=== PATIENT | male | born 1995 | race Caucasian/White ===

== ENCOUNTER 2021-02-11 09:16 | Emergency (ER) | payer OTHER ==
[2021-02-11 09:24] VITALS: TEMP 98.6
[2021-02-11 09:27] LABS: Glucose,Whole Blood 105 mg/dL (75-99)
--- NOTE | 2021-02-11 09:32 | ED ---
General Adult HPI - General Chief complaint: Trauma Stated complaint: Fall Time Seen by Provider: 02/11/21 09:20 Source: patient, EMS, RN notes reviewed, old records reviewed Mode of arrival: EMS Limitations: no limitations - History of Present Illness Initial comments: This is a 25-year-old male who presents emergency Department after he had fallen off a roof 14 feet. Patient states he doesn't remember the event however people at the scene stated he did get up fairly quickly afterwards and was walking around but again patient doesn't remember the event. Patient denies headache patient denies neck pain patient denies numbness weakness. Patient complains of right wrist pain and left shoulder pain. Patient also has some swelling to the nose and abrasions and swelling to both lips. No lacerations are noted. Patient denies any chest pain back pain or abdominal pain. Patient denies any hip pain patient denies any lower extremity pain. Patient has no pain in either elbow and the wrist and hand are free of pain on the left. - Related Data Home Medications Medication Instructions Recorded Confirmed Albuterol Nebulized [Ventolin 2.5 mg INHALATION RT-QID PRN 02/11/21 02/11/21 Nebulized] Albuterol Sulfate [Proair Hfa] 2 puff INHALATION RT-QID PRN 02/11/21 02/11/21 Previous Rx's Medication Instructions Recorded Ketorolac [Toradol] 10 mg PO Q6HR #15 tab 02/11/21 Allergies Allergy/AdvReac Type Severity Reaction Status Date / Time pollen extracts Allergy Dyspnea Verified 02/11/21 12:16 Review of Systems ROS Statement: Those systems with pertinent positive or pertinent negative responses have been documented in the HPI. ROS Other: All systems not noted in ROS Statement are negative. Past Medical History Past Medical History: Asthma History of Any Multi-Drug Resistant Organisms: None Reported Past Surgical History: No Surgical Hx Reported Past Psychological History: No Psychological Hx Reported Smoking Status: Current every day smoker Past Alcohol Use History: Daily Past Drug Use History: None Reported General Exam - General Exam Comments Initial Comments: GENERAL: Patient is well-developed and well-nourished. Patient is nontoxic and well- hydrated and is in mild distress. ENT: Neck is soft and supple. No significant lymphadenopathy is noted. Oropharynx is clear. Moist mucous membranes. Patient has swelling of the upper and lower lip with abrasion superficially on both. Patient's nose is tender to palpation and mildly swollen. EYES: The sclera were anicteric and conjunctiva were pink and moist. Extraocular movements were intact and pupils were equal round and reactive to light. Eyelids were unremarkable. PULMONARY: Unlabored respirations. Good breath sounds bilaterally. No audible rales rhonchi or wheezing was noted. CARDIOVASCULAR: There is a regular rate and rhythm without any murmurs gallops or rubs. ABDOMEN: Soft and nontender with normal bowel sounds. SKIN: Skin is clear with no lesions or rashes and otherwise unremarkable. NEUROLOGIC: Patient is alert and oriented x3. Cranial nerves II through XII are grossly intact. Motor and sensory are also intact. Normal speech, volume and content. Symmetrical smile. MUSCULOSKELETAL: Patient is very tender in the right wrist and there is gross deformity of the wrist. Patient has anterior tenderness of the left shoulder. Patient has no back pain. LYMPHATICS: No significant lymphadenopathy is noted PSYCHIATRIC: Normal psychiatric evaluation. Limitations: no limitations Course Vital Signs 02/11/21 02/11/21 02/11/21 09:19 13:18 13:33 Temperature 98.6 F Pulse Rate 92 96 88 Respiratory 18 14 14 Rate Blood Pressure 172/121 167/116 O2 Sat by Pulse 100 99 97 Oximetry 02/11/21 02/11/21 02/11/21 13:38 13:40 13:55 Temperature Pulse Rate 83 98 101 H Respiratory 15 16 20 Rate Blood Pressure 178/119 178/122 198/109 O2 Sat by Pulse 98 98 100 Oximetry Procedures - Procedural Sedation Procedural Sedation Start Time: 13:33 Indications: fracture/dislocation reduction Preparation: athletic monitor applied, pulse oximeter, capnometry used IV Propofol Dose (mgs): 175 Complications: none Patient Tolerated Procedure: well Medical Decision Making - Medical Decision Making After I saw the patient I upgraded to a priority [address] I spoke with Dr[address] Virk though I had not ordered at Dr. Virk was requesting a computed tomography scan of the chest abdomen pelvis. Patient states urine he had a tetanus up-to-date Patient received [address] to the hospital. EKG shows normal sinus rhythm 85 bpm WI interval is 180 QRSs 80 QT interval 334 QTC is 397. Patient's EKG shows diffuse ST segment elevation consistent with early repo. Patient denies any chest pain CT of the brain and C-spine showed no acute normalities. CT of the facial bones show a fractured septum and nasal bone fracture. Patient's CT of the chest abdomen pelvis show no acute abnormality. X-ray of the left shoulder was negative for any fractures. X-ray of the right wrist showed a fracture of the distal ulna and a comminuted fracture that is through the joints and 100% displaced of the distal radius. I spoke with the PA for advanced orthopedics and the he wanted us to try to reduce it in the emergency department an attempt was made. Postreduction films show good alignment. I went back in to the room multiple times to reevaluate the hand he was intact neurovascularly. - Lab Data Result diagrams: 02/11/21 09:20 02/11/21 09:20 Lab Results 02/11/21 02/11/21 02/11/21 Range/Units 09:20 09:20 09:20 WBC 15.7 H (3.8-10.6) k/uL RBC 5.29 (4.30-5.90) m/uL Hgb 17.0 (13.0-17.5) gm/dL Hct 49.6 (39.0-53.0) % MCV 93.7 (80.0-100.0) fL MCH 32.2 (25.0-35.0) pg MCHC 34.4 (31.0-37.0) g/dL RDW 11.6 (11.5-15.5) % Plt Count 223 (150-450) k/uL MPV 7.1 Neutrophils % 74 % Lymphocytes % 16 % Monocytes % 6 % Eosinophils % 2 % Basophils % 1 % Neutrophils # 11.6 H (1.3-7.7) k/uL Lymphocytes # 2.4 (1.0-4.8) k/uL Monocytes # 0.9 (0-1.0) k/uL Eosinophils # 0.4 (0-0.7) k/uL Basophils # 0.2 (0-0.2) k/uL PT 10.9 (9.0-12.0) sec INR 1.0 (<1.2) APTT 21.8 L (22.0-30.0) sec Sodium 137 (137-145) mmol/L Potassium 4.3 (3.5-5.1) mmol/L Chloride 106 (98-107) mmol/L Carbon Dioxide 24 (22-30) mmol/L Anion Gap 7 mmol/L BUN 14 (9-20) mg/dL Creatinine 0.79 (0.66-1.25) mg/dL Est GFR (CKD-EPI)AfAm >90 (>60 ml/min/1.73 sqM) Est GFR (CKD-EPI)NonAf >90 (>60 ml/min/1.73 sqM) Glucose 114 H (74-99) mg/dL POC Glucose (mg/dL) (75-99) mg/dL POC Glu Cyber Security ID Calcium 8.9 (8.4-10.2) mg/dL Total Bilirubin 0.9 (0.2-1.3) mg/dL AST 45 (17-59) U/L ALT 24 (4-49) U/L Alkaline Phosphatase 60 (38-126) U/L Troponin I (0.000-0.034) ng/mL Total Protein 6.7 (6.3-8.2) g/dL Albumin 4.4 (3.5-5.0) g/dL Urine Color Urine Appearance (Clear) Urine pH (5.0-8.0) Ur Specific [place] (1.001-1.035) Urine Protein (Negative) Urine Glucose (UA) (Negative) Urine Ketones (Negative) Urine Blood (Negative) Urine Nitrite (Negative) Urine Bilirubin (Negative) Urine Urobilinogen (<2.0) mg/dL Ur Leukocyte Esterase (Negative) Urine RBC (0-5) /hpf Urine WBC (0-5) /hpf Amorphous Sediment (None) /hpf Urine Mucus (None) /hpf Urine Opiates Screen (NotDetected) Ur Oxycodone Screen (NotDetected) Urine Methadone Screen (NotDetected) Ur Propoxyphene Screen (NotDetected) Ur Barbiturates Screen (NotDetected) U Tricyclic Antidepress (NotDetected) Ur Phencyclidine Scrn (NotDetected) Ur Amphetamines Screen (NotDetected) U Methamphetamines Scrn (NotDetected) U Benzodiazepines Scrn (NotDetected) Urine Cocaine Screen (NotDetected) U Marijuana (THC) Screen (NotDetected) Serum Alcohol <10 mg/dL 02/11/21 02/11/21 02/11/21 Range/Units 09:20 09:25 10:17 WBC (3.8-10.6) k/uL RBC (4.30-5.90) m/uL Hgb (13.0-17.5) gm/dL Hct (39.0-53.0) % MCV (80.0-100.0) fL MCH (25.0-35.0) pg MCHC (31.0-37.0) g/dL RDW (11.5-15.5) % Plt Count (150-450) k/uL MPV Neutrophils % % Lymphocytes % % Monocytes % % Eosinophils % % Basophils % % Neutrophils # (1.3-7.7) k/uL Lymphocytes # (1.0-4.8) k/uL Monocytes # (0-1.0) k/uL Eosinophils # (0-0.7) k/uL Basophils # (0-0.2) k/uL PT (9.0-12.0) sec INR (<1.2) APTT (22.0-30.0) sec Sodium (137-145) mmol/L Potassium (3.5-5.1) mmol/L Chloride (98-107) mmol/L Carbon Dioxide (22-30) mmol/L Anion Gap mmol/L BUN (9-20) mg/dL Creatinine (0.66-1.25) mg/dL Est GFR (CKD-EPI)AfAm (>60 ml/min/1.73 sqM) Est GFR (CKD-EPI)NonAf (>60 ml/min/1.73 sqM) Glucose (74-99) mg/dL POC Glucose (mg/dL) 105 H (75-99) mg/dL POC Glu Cyber Security ID Ariane Head Calcium (8.4-10.2) mg/dL Total Bilirubin (0.2-1.3) mg/dL AST (17-59) U/L ALT (4-49) U/L Alkaline Phosphatase (38-126) U/L Troponin I <0.012 (0.000-0.034) ng/mL Total Protein (6.3-8.2) g/dL Albumin (3.5-5.0) g/dL Urine Color Yellow Urine Appearance Cloudy (Clear) Urine pH 7.0 (5.0-8.0) Ur Specific [place] 1.036 H (1.001-1.035) Urine Protein Negative (Negative) Urine Glucose (UA) Negative (Negative) Urine Ketones Negative (Negative) Urine Blood Trace H (Negative) Urine Nitrite Negative (Negative) Urine Bilirubin Negative (Negative) Urine Urobilinogen <2.0 (<2.0) mg/dL Ur Leukocyte Esterase Negative (Negative) Urine RBC 13 H (0-5) /hpf Urine WBC 1 (0-5) /hpf Amorphous Sediment Rare H (None) /hpf Urine Mucus Rare H (None) /hpf Urine Opiates Screen Not Detected (NotDetected) Ur Oxycodone Screen Not Detected (NotDetected) Urine Methadone Screen Not Detected (NotDetected) Ur Propoxyphene Screen Not Detected (NotDetected) Ur Barbiturates Screen Not Detected (NotDetected) U Tricyclic Antidepress Not Detected (NotDetected) Ur Phencyclidine Scrn Not Detected (NotDetected) Ur Amphetamines Screen Not Detected (NotDetected) U Methamphetamines Scrn Not Detected (NotDetected) U Benzodiazepines Scrn Not Detected (NotDetected) Urine Cocaine Screen Not Detected (NotDetected) U Marijuana (THC) Screen Not Detected (NotDetected) Serum Alcohol mg/dL Critical Care Time Critical Care Time: Yes Total Critical Care Time: 45 Disposition Clinical Impression: Distal radius fracture, right, Distal end of ulna fracture, closed, Nasal bone fracture, Facial abrasion Disposition: HOME SELF-CARE Condition: Good Instructions (If sedation given, give patient instructions): Wrist Fracture in Adults (ED), Moderate Sedation (ED) Prescriptions: Ketorolac [Toradol] 10 mg PO Q6HR #15 tab Is patient prescribed a controlled substance at d/c from ED?: No Referrals: Slick Rangel DO [Doctor of Osteopathic Medicine] - 1-2 days Hernando Castro DO [Doctor of Osteopathic Medicine] - 1-2 days Time of Disposition: 14:55
[2021-02-11 09:37] LABS: Basophils # (A) 0.2 k/uL (0-0.2); Basophils % (A) 1 %; Eosinophils # (A) 0.4 k/uL (0-0.7); Eosinophils % (A) 2 %; HCT 49.6 % (39.0-53.0); Lymphocytes # (A) 2.4 k/uL (1.0-4.8); Lymphocytes % (A) 16 %; MCH 32.2 pg (25.0-35.0); MCHC 34.4 g/dL (31.0-37.0); MCV 93.7 fL (80.0-100.0); Mean Platelet Volume 7.1; Monocytes # (A) 0.9 k/uL (0-1.0); Monocytes % (A) 6 %; Neutrophils # (A) 11.6 k/uL (1.3-7.7); Neutrophils % (A) 74 %; Platelet Count 223 k/uL (150-450); RBC 5.29 m/uL (4.30-5.90); RDW 11.6 % (11.5-15.5); WBC 15.7 k/uL (3.8-10.6)
--- NOTE | 2021-02-11 09:45 | XR ---
EXAMINATION TYPE: XR chest 1V portable DATE OF EXAM: 02/11/2021 COMPARISON: NONE HISTORY: Trauma TECHNIQUE: Single frontal view of the chest is obtained. FINDINGS: There is no focal air space opacity, pleural effusion, or pneumothorax seen. The cardiac silhouette size is within normal limits. The osseous structures are intact. IMPRESSION: No acute process.
--- NOTE | 2021-02-11 09:46 | XR ---
EXAMINATION TYPE: XR pelvis AP view DATE OF EXAM: 02/11/2021 CLINICAL HISTORY: Trauma TECHNIQUE: A single AP view of the pelvis is obtained. COMPARISON: None. FINDINGS: There is no acute fracture/dislocation evident in the pelvis. The hip and sacroiliac join ts appear symmetric and unremarkable. The overlying soft tissue appears unremarkable. IMPRESSION: There is no acute fracture or dislocation in the pelvis.
[2021-02-11 09:53] LABS: Prothrombin Time 10.9 sec (9.0-12.0)
[2021-02-11 09:54] LABS: Partial Thromboplastin Time 21.8 sec (22.0-30.0)
[2021-02-11 09:59] LABS: ALT 24 U/L (4-49); African American GFR (CKD) >90 (>60 ml/min/1.73 sqM); Alcohol <10 mg/dL; Anion Gap 7 mmol/L; Blood Urea Nitrogen 14 mg/dL (9-20); Calcium 8.9 mg/dL (8.4-10.2); Carbon Dioxide 24 mmol/L (22-30); Chloride 106 mmol/L (98-107); Glucose 114 mg/dL (74-99); Non-African American GFR(CKD) >90 (>60 ml/min/1.73 sqM); Sodium 137 mmol/L (137-145); Total Bilirubin 0.9 mg/dL (0.2-1.3)
[2021-02-11 10:09] LABS: AST 45 U/L (17-59); Albumin 4.4 g/dL (3.5-5.0); Potassium 4.3 mmol/L (3.5-5.1); Total Protein 6.7 g/dL (6.3-8.2)
[2021-02-11 10:10] LABS: Alkaline Phosphatase 60 U/L (38-126)
--- NOTE | 2021-02-11 10:25 | CT ---
EXAMINATION TYPE: CT brain dariusine wo con DATE OF EXAM: 02/11/2021 COMPARISON: None HISTORY: 25-year-old male with pain after fall from roof CT DLP: 1841.7 mGycm Automated exposure control for dose reduction was used. Technique: Examination of the head was done in axial plane without intravenous contrast. Coronal and sagittal reconstructions performed. CT of the cervical spine was obtained in axial plane without intravenous injection of contrast mater ial. Coronal and sagittal reformatted images were obtained from the axial views for evaluation of f ractures, spinal alignment and canal. FINDINGS: Head: There is no evidence of acute intracranial hemorrhage, acute ischemic changes, mass, mass-effect, or extra-axial fluid collection. There is no effacement of cerebral sulci or basal subarachnoid cister ns. There is no hydrocephalus. There is no midline shift. Dykes-white matter distinction is preserv ed. Mastoid air cells are well pneumatized. No calvarial fracture. Facial bones reported separately. Cervical spine: No craniocervical junction abnormality, predental space widening, or prevertebral soft tissue swellin g. Preserved alignment of the cervical spine without acute fracture. Assessment of the spinal canal from C6-C7 and below is limited due to artifact from patient's shoulde rs. No significant degenerative change seen. In the visualized upper lungs, there is prevascular space lymphadenopathy up to 1.3 cm. A 6 mm right apical and 4 mm left apical pulmonary nodules are noted. Sagittal and coronal reformatted images confirm above findings. COMBINED IMPRESSION: 1. No acute intracranial abnormality seen. 2. No acute fracture or malalignment of the cervical spine. 3. Facial bones reported separately. 4. Anterior mediastinal lymphadenopathy measuring up to 1.3 cm in small nodules in the visualized upp er lungs measuring up to 6 mm. Consider etiologies such as sarcoidosis, fungal infection, or granulom atous disease. The chest will be further evaluated separately.
[2021-02-11] MEDS ORDERED: HYDROmorphone 0.5 MG/0.5 ML SYRINGE IVP STA ×3 (10:26→14:10)
--- NOTE | 2021-02-11 10:30 | CT ---
EXAMINATION TYPE: CT facial bones wo con DATE OF EXAM: 02/11/2021 COMPARISON: None HISTORY: 25-year-old male pain after fall from roof TECHNIQUE: Contiguous axial scanning of the facial bones without IV contrast. Coronal reconstructions performed. CT DLP: 1841.7 mGycm Automated exposure control for dose reduction was used. FINDINGS: The mandible and TMJs appear intact. Pterygoid plates and zygomatic arches appear intact. Very subtle irregularity along the left nasal bone, coronal image 14 with some overlying soft tissue air suggesting subtle nondisplaced nasal bone fracture. Overlying soft tissue swelling as well. Orbits and globes are intact. There is segmental buckling of the nasal septum and moderate mucosal th ickening throughout the anterior ethmoid air cells. Moderate mucosal thickening left maxillary sinus and mild within the right maxillary sinus and small air fluid level in the left. IMPRESSION: 1. SUBTLE NONDISPLACED LEFT NASAL BONE FRACTURE WITH OVERLYING SOFT TISSUE SWELLING. 2. BUCKLED NASAL SEPTUM COMPATIBLE WITH A SEGMENTAL FRACTURE OF THE NASAL SEPTUM. 3. MILD CHRONIC PARANASAL SINUS DISEASE. LAYERING FLUID IN THE LEFT MAXILLARY SINUS COULD REPRESENT S UPERIMPOSED ACUTE SINUSITIS OR SOME LAYERING HEMORRHAGE.
[2021-02-11 10:35] LABS: Amorphous Sediment,Urine Rare /hpf; Appearance,Urine Cloudy (Clear); Bilirubin,Urine Negative (Negative); Blood,Urine Trace (Negative); Color,Urine Yellow; Glucose,Urine (UA) Negative (Negative); Ketones,Urine Negative (Negative); Leukocyte Esterase,Urine Negative (Negative); Mucus,Urine Rare /hpf; Nitrite,Urine Negative (Negative); Protein,Urine Negative (Negative); RBC,Urine 13 /hpf (0-5); Specific Gravity,Urine 1.036 (1.001-1.035); Urobilinogen,Urine <2.0 mg/dL (<2.0); WBC,Urine 1 /hpf (0-5)
--- NOTE | 2021-02-11 10:44 | CT ---
EXAMINATION TYPE: CT ChestAbdPelvis w con DATE OF EXAM: 02/11/2021 COMPARISON: None HISTORY: 25-year-old male fall from roof, pain to Lt shoulder upper chest TECHNIQUE: Contiguous axial scanning of the chest, abdomen, and pelvis performed with IV Contrast, pa tient injected with 100 mL of Isovue 300. Delayed images through the kidneys and bladder were obtaine d. Coronal/sagittal reconstructions performed. CT DLP: 1378 mGycm Automated exposure control for dose reduction was used. FINDINGS: CHEST: Heart normal size without pericardial effusion. Aorta normal caliber with bovine configuration to the aortic arch. No evidence for aortic dissection. Breathing motion artifact is present. No mediastinal hematoma. Mildly enlarged 1.1 cm prevascular space lymph node. A mildly enlarged 1.3 c m right hilar lymph node. Breathing motion artifact limits the lungs. A couple 6 mm anterior right upper lobe pulmonary nodules and a 4 mm anterior left upper lobe pulmona ry nodules, axial image 17 and 24. Prominent hazy dependent atelectasis. No consolidation, pneumothor ax, or pleural effusion is seen. ABDOMEN: Limitations due to streak and beam hardening artifact from the patient's arms down by his side. No focal liver lesion identified. Gallbladder, adrenal glands, spleen, pancreas show no gross abnormality.. No dilated small bowel, free fluid, or free air. Some scattered small retroperitoneal lymph nodes celestine suring up to 6 mm and nonspecific. Otherwise, no abdominal lymphadenopathy. Mild stool burden. No pericolonic inflammatory change. PELVIS: Bladder urine distended. No abnormal fluid collection in the pelvis. No pelvic lymphadenopathy seen. BONES: No acute fracture identified. IMPRESSION: 1. BREATHING MOTION ARTIFACTS. SOME LIMITATIONS IN ASSESSMENT OF THE ABDOMEN DUE TO ARTIFACT FROM THE PATIENT'S ARMS DOWN BY HIS SIDES. NO ACUTE TRAUMATIC SEQUELAE IDENTIFIED ALLOWING FOR THESE LIMITATI ONS. 2. A COUPLE, MILDLY ENLARGED PREVASCULAR SPACE AND RIGHT HILAR LYMPH NODES MEASURING UP TO 1.3 CM. AD DITIONAL FEW UPPER LUNG PULMONARY NODULES MEASURING UP TO 6 MM. CONSIDER GRANULOMATOUS DISEASE OR SEQ UELA OF ATYPICAL/FUNGAL INFECTION. OUTPATIENT PULMONARY MEDICINE FOLLOW-UP CAN BE CONSIDERED IF INDIC ATED.
[2021-02-11 10:45] LABS: Amphetamine Screen,Urine Not Detected (NotDetected); Barbiturate Screen,Urine Not Detected (NotDetected); Benzodiazepines Screen,Urine Not Detected (NotDetected); Cocaine Screen,Urine Not Detected (NotDetected); Methadone Screen, Urine Not Detected (NotDetected); Opiate Screen,Urine Not Detected (NotDetected); Oxycodone Screen, Urine Not Detected (NotDetected); Phencyclidine Screen,Urine Not Detected (NotDetected); Tricyclic Antidepressant,Urine Not Detected (NotDetected); Urn Cannabinoid Scrn Not Detected (NotDetected)
--- NOTE | 2021-02-11 11:39 | XR ---
EXAMINATION TYPE: XR shoulder complete LT DATE OF EXAM: 02/11/2021 CLINICAL HISTORY: Trauma TECHNIQUE: Three views of the left shoulder are obtained. COMPARISON: None. FINDINGS: There is no acute fracture/dislocation evident in the left shoulder. The acromioclavicula r and glenohumeral joint spaces appear within normal limits. The visualized ribs are intact and unre markable. IMPRESSION: There is no acute fracture or dislocation in the left shoulder.
--- NOTE | 2021-02-11 11:41 | XR ---
EXAMINATION TYPE: XR wrist complete RT DATE OF EXAM: 02/11/2021 CLINICAL HISTORY: Trauma TECHNIQUE: Frontal, lateral and oblique images of the right wrist are obtained. COMPARISON: None FINDINGS: There is a complex distal radial fracture with intra-articular extension and displacement of the dist al fragment dorsally. Distal ulnar fracture is present. There is associated soft tissue swelling. IMPRESSION: There is a complex distal radial fracture with intra-articular extension and displacement of the dist al fragment dorsally. Distal ulnar fracture is present. There is associated soft tissue swelling.
[2021-02-11] MEDS ORDERED: PROPOFOL 10 MG/ML 20 ML VIAL IV ONE (13:15)
--- NOTE | 2021-02-11 14:08 | XR ---
EXAMINATION TYPE: XR wrist limited RT DATE OF EXAM: 02/11/2021 COMPARISON: Earlier same date HISTORY: Post reduction wrist fracture TECHNIQUE: 2 limited views right wrist FINDINGS: Complex fracture of the distal radius and ulna is seen with markedly improved alignment. Overlying ca st obscures fine bony detail. IMPRESSION: Complex fracture of the distal radius and ulna is seen with markedly improved alignment. Overlying ca st obscures fine bony detail.
[2021-02-11] MEDS ORDERED: Acetaminophen-Codeine 300-30mg TAB PO STA (14:44)
[2021-02-11] MEDS ORDERED: ACET/COD 300 MG/30 MG STARTER PACK 6 TAB BTL PO STA (14:44)
[2021-02-11 15:38] VITALS: BP 164/101; PULSE 85; RESP 18
== END 2021-02-11 15:00 | disposition home or self-care (01) ==
LOC: EC 09:16
DX: S52.571A Other intraarticular fracture of lower end of right radius, initial encounter for closed fracture (principal); S52.602A Unspecified fracture of lower end of left ulna, initial encounter for closed fracture; S02.2XXA Fracture of nasal bones, initial encounter for closed fracture; S00.81XA Abrasion of other part of head, initial encounter; F17.200 Nicotine dependence, unspecified, uncomplicated; J45.909 Unspecified asthma, uncomplicated; Z91.048 Other nonmedicinal substance allergy status; W13.2XXA Fall from, out of or through roof, initial encounter
CPT/HCPCS: 99285; 25605; 96374; 96376; 36415; 93005; 80053; 84484; 85025; 85610; 85730; 81001; 80306; 80320; 72170; 73030; 73100; 73110; 71045; 72125; 70486; 70450; 71260; 74177; J2704; J1170; Q9967

== ENCOUNTER 2021-02-18 17:13 | Emergency (ER) | payer OTHER ==
[2021-02-18 17:20] VITALS: TEMP 97.9
--- NOTE | 2021-02-18 18:30 | CT ---
EXAMINATION TYPE: CT brain julio aponte DATE OF EXAM: 02/18/2021 COMPARISON: None HISTORY: Fall from roof 1 week ago. Headache and lightheadedness since. CT DLP: 1391.[address] Brain: Unenhanced CT of the brain was performed. The ventricles, basal cisterns and sulci overlying the cerebral convexities demonstrate a normal appe arance. There is no evidence for intracranial hemorrhage or sulcal effacement. No mass effects are seen. If symptoms persist consider MRI. Osseous calvarium is intact. IMPRESSION: No acute intracranial process CT Cervical Spine: Unenhanced CT of the cervical spine was performed with bone and soft tissue window settings submitted . Coronal and sagittal reconstruction is obtained. There is normal alignment and prevertebral soft tissues. I do not see evidence for fracture or sublu xation. No significant degenerative changes are present. The lung apices are clear. IMPRESSION: No evidence for acute fracture or subluxation of the cervical spine.
--- NOTE | 2021-02-18 18:40 | ED ---
Headache HPI - General Chief Complaint: Headache Stated Complaint: Revisit/dizzy/post fall off roof/[facility] Time Seen by Provider: 02/18/21 17:25 Mode of arrival: ambulatory Limitations: no limitations - History of Present Illness Initial Comments: 25-year-old male presents to emergency Department with a chief complaint of headache after fall. [facility] the incident occurred about one week ago after he fell from a roof approximately 14-15 feet high. is brought to the emergency department and had multiple scans along with x-rays. [facility] imaging of the head was unremarkable aside from nasal bone fractures. Patient reports after he was discharged, he continued to have episodes of lightheadedness where he was experiencing near syncopal episodes. Denies any dizziness where the room spinning around him or any actual syncopal episodes. Patient also reports a headache this seems to persistent. He denies any visual changes, gait instability nausea or vomiting. - Related Data Home Medications Medication Instructions Recorded Confirmed Albuterol Nebulized [Ventolin 2.5 mg INHALATION RT-QID PRN 02/11/21 02/11/21 Nebulized] Albuterol Sulfate [Proair Hfa] 2 puff INHALATION RT-QID PRN 02/11/21 02/11/21 Previous Rx's Medication Instructions Recorded Ketorolac [Toradol] 10 mg PO Q6HR #15 tab 02/11/21 Allergies Allergy/AdvReac Type Severity Reaction Status Date / Time pollen extracts Allergy Dyspnea Verified 02/18/21 17:20 Review of Systems ROS Statement: Those systems with pertinent positive or pertinent negative responses have been documented in the HPI. ROS Other: All systems not noted in ROS Statement are negative. Past Medical History Past Medical History: Asthma History of Any Multi-Drug Resistant Organisms: None Reported Past Surgical History: No Surgical Hx Reported Past Psychological History: No Psychological Hx Reported Smoking Status: Current every day smoker Past Alcohol Use History: Occasional Past Drug Use History: None Reported General Exam Limitations: no limitations General appearance: alert, in no apparent distress Head exam: Present: atraumatic, normocephalic, normal inspection Eye exam: Present: normal appearance, PERRL, EOMI Pupils: Present: normal accommodation ENT exam: Present: normal exam, normal oropharynx, mucous membranes moist, TM's normal bilaterally, normal external ear exam Neck exam: Present: normal inspection, full ROM. Absent: tenderness, lymphadenopathy Respiratory exam: Present: normal lung sounds bilaterally. Absent: respiratory distress, wheezes, rales, rhonchi, stridor Cardiovascular Exam: Present: regular rate, normal rhythm, normal heart sounds. Absent: systolic murmur, diastolic murmur Extremities exam: Present: normal inspection, full ROM, normal capillary refill. Absent: tenderness, pedal edema, joint swelling Back exam: Present: normal inspection, full ROM. Absent: tenderness, CVA tenderness (R), CVA tenderness (L), muscle spasm, paraspinal tenderness, vertebral tenderness Neurological exam: Present: alert, oriented X3, CN II-XII intact, normal gait Psychiatric exam: Present: normal affect, normal mood Skin exam: Present: warm, dry, intact, normal color Course Vital Signs 02/18/21 02/18/21 17:18 19:05 Temperature 97.9 F Pulse Rate 73 87 Respiratory 20 16 Rate Blood Pressure 135/89 123/79 O2 Sat by Pulse 99 Oximetry Medical Decision Making - Medical Decision Making 25-year-old male presents to emergency Department with a chief complaint of headache after fall. Physical examination is unremarkable. No focal neural deficits. Vital signs are within normal limits. Repeat CT of the brain and C- spine is unremarkable. Patient likely experiencing postconcussive symptoms. Advised to follow with PCP. Return parameters discussed the patient is a 68 [address]. Case discussed with Dr. Tovar. Disposition Clinical Impression: Concussion Disposition: HOME SELF-CARE Condition: Stable Instructions (If sedation given, give patient instructions): Concussion (ED), Post Concussion Syndrome (ED) Additional Instructions: Please return to the Emergency Department if symptoms worsen or any other concerns. Is patient prescribed a controlled substance at d/c from ED?: No Referrals: None,Stated [Primary Care Provider] - 1-2 days Time of Disposition: 18:40
[2021-02-18 19:06] VITALS: BP 123/79; PULSE 87; RESP 16
== END 2021-02-18 19:05 | disposition home or self-care (01) ==
LOC: EC 17:13
DX: S06.0X9A Concussion with loss of consciousness of unspecified duration, initial encounter (principal); F17.200 Nicotine dependence, unspecified, uncomplicated; J45.909 Unspecified asthma, uncomplicated; Z91.048 Other nonmedicinal substance allergy status; W13.2XXA Fall from, out of or through roof, initial encounter
CPT/HCPCS: 70450; 72125; 99284